=== PATIENT | female | born 1995 | race Caucasian/White ===

== ENCOUNTER 2018-04-01 10:37 | Observation (INO) | payer OTHER ==
--- NOTE | 2018-04-01 11:21 | EDPHY ---
H & P Stated Complaint: R lower abdominal pain starting last night at 2030 Time Seen by Provider: 04/01/18 11:20 - Personal History LMP (Females 10-55): 15-21 Days Ago - Medical/Surgical History Hx Asthma: No Hx Chronic Respiratory Disease: No Hx Diabetes: No Hx Cardiac Disease: No Hx Renal Disease: No Hx Cirrhosis: No Hx Alcoholism: No Hx HIV/AIDS: No Hx Splenectomy or Spleen Trauma: No Other PMH: none reported - Social History Smoking Status: Never smoked Constitutional: Initial Vital Signs Temperature (C) 37.1 C 04/01/18 10:40 Heart Rate 85 04/01/18 10:40 Respiratory Rate 18 04/01/18 10:40 Blood Pressure 118/85 H 04/01/18 10:40 O2 Sat (%) 98 04/01/18 10:40 O2 Delivery Mode Room Air Allergies/Adverse Reactions: No Known Allergies Allergy (Unverified 04/01/18 10:40) Home Medications: Medication Instructions Recorded NK [No Known Home Meds] 04/01/18 Medical Decision Making - Diagnostics Imaging: Discussed imaging studies w/ call circuit worker Radiologist, I viewed and interpreted images myself ED Course/Re-evaluation: CHIEF COMPLAINT: RLQ abd pain HISTORY OF PRESENT ILLNESS: The patient is a 22 y/o female arriving with her friend complaining of acute abdominal pain onset last night around 20:30, about 14 hours ago, and now localized to her RLQ. She has associated nausea and loss of appetite today. No vomiting, diarrhea, flank pain, abnormal vaginal discharge , urinary symptoms, fever. No history of ovarian cysts or prior abdominal surgeries. REVIEW OF SYSTEMS: A comprehensive 10 system review of systems is otherwise negative aside from elements mentioned in the history of present illness and medical decision making. PHYSICAL EXAM: HR, BP, O2 Sat, RR. Temp noted General Appearance: Alert, well hydrated, appropriate, and non-toxic appearing. Head: Atraumatic without scalp tenderness or obvious injury Eyes: Pupils equal, round, reactive to light and accommodation, EOMI, no trauma , no injection. Nose: Atraumatic, no rhinorrhea, clear. Throat: Mucus membranes moist. Neck: Supple, nontender, no lymphadenopathy. Respiratory: No retractions, no distress, no wheezes, and no accessory muscle use. Lungs are clear to auscultation bilaterally. Cardiovascular: Regular rate and rhythm, no murmurs, rubs, or gallops.Good capillary refill all extremities. Gastrointestinal: Abdomen is soft, McBurney's point tenderness, non-distended, no masses, no rebound, no guarding, no peritoneal signs. Musculoskeletal: Normal active ROM of all extremities, atraumatic. Neurological: Alert, appropriate, and interactive. Nonfocal. Skin: No rashes, good turgor, no nodules on palpation. Past medical history: Nexplanon Past surgical history: No abd surgeries Family history: Noncontributory Social history: Friend at bedside. [employer] student. Lives in [place]. DIAGNOSTICS/PROCEDURES/CRITICAL CARE TIME: Abdominal CT: acute appendicitis DIFFERENTIAL DIAGNOSIS: The differential diagnosis for the patient's abdominal pain included but was not limited to ovarian cyst, pelvic inflammatory disease, ovarian torsion, urinary tract infection, ectopic , cholecystitis, and appendicitis. MEDICAL DECISION MAKING: This is a healthy 22 y/o female who presents with a 14-hour history of RLQ abdominal pain with associated nausea. She has McBurney's point tenderness on exam. Concern for appendicitis or ovarian cyst rupture seems less likely due to location of pain. Plan for IV, labs, UA, abdominal CT. Symptomatic management as needed. WBC elevated. CT shows acute appendicitis. Reassessed patient and discussed findings. 1gm IV Cefoxitin ordered. NPO status. Last food last night around 17:00. - Data Points Laboratory Results: Laboratory Results 04/01/18 11:15 04/01/18 11:15 04/01/18 04/01/18 04/01/18 12:10 11:15 11:15 WBC RBC Hgb Hct MCV MCH MCHC RDW Plt Count MPV Neut % (Auto) Lymph % (Auto) [place] % (Auto) Eos % (Auto) Baso % (Auto) Nucleat RBC Rel Count Absolute Neuts (auto) Absolute Lymphs (auto) Absolute Monos (auto) Absolute Eos (auto) Absolute Basos (auto) Absolute Nucleated RBC Immature Gran % Immature Gran # Sodium 137 mEq/L mEq/L (135-145) Potassium 3.8 mEq/L mEq/L (3.3-5.0) Chloride 102 mEq/L mEq/L (97-110) Carbon Dioxide 25 mEq/l mEq/l (22-31) Anion Gap 10 mEq/L mEq/L (8-16) BUN 8 mg/dL mg/dL (7-23) Creatinine 0.6 mg/dL mg/dL (0.6-1.0) Estimated GFR > 60 Glucose 83 mg/dL mg/dL (70-100) Calcium 9.6 mg/dL mg/dL (8.5-10.4) Beta HCG, Qual NEGATIVE Urine Color YELLOW Urine Appearance HAZY Urine pH 7.0 (5.0-7.5) Ur Specific [place] 1.009 (1.002-1.030) Urine Protein NEGATIVE (NEGATIVE) Urine Ketones NEGATIVE (NEGATIVE) Urine Blood 2+ H (NEGATIVE) Urine Nitrate NEGATIVE (NEGATIVE) Urine Bilirubin NEGATIVE (NEGATIVE) Urine Urobilinogen NEGATIVE EU EU (0.2-1.0) Ur Leukocyte Esterase 1+ H (NEGATIVE) Urine RBC 1-3 /hpf /hpf (0-3) Urine WBC 1-3 /hpf /hpf (0-3) Ur Epithelial Cells 2+ /lpf H /lpf (NONE-1+) Urine Bacteria TRACE /hpf H /hpf (NONE SEEN) Urine Mucus TRACE /lpf /lpf (NONE-1+) Urine Glucose NEGATIVE (NEGATIVE) 04/01/18 11:15 WBC 11.14 10^3/uL H 10^3/uL (3.80-9.50) RBC 4.71 10^6/uL 10^6/uL (4.18-5.33) Hgb 13.5 g/dL g/dL (12.6-16.3) Hct 39.6 % % (38.0-47.0) MCV 84.1 fL fL (81.5-99.8) MCH 28.7 pg pg (27.9-34.1) MCHC 34.1 g/dL g/dL (32.4-36.7) RDW 11.6 % % (11.5-15.2) Plt Count 231 10^3/uL 10^3/uL (150-400) MPV 9.8 fL fL (8.7-11.7) Neut % (Auto) 74.3 % H % (39.3-74.2) Lymph % (Auto) 14.3 % L % (15.0-45.0) [place] % (Auto) 10.5 % % (4.5-13.0) Eos % (Auto) 0.3 % L % (0.6-7.6) Baso % (Auto) 0.3 % % (0.3-1.7) Nucleat RBC Rel Count 0.0 % % (0.0-0.2) Absolute Neuts (auto) 8.29 10^3/uL H 10^3/uL (1.70-6.50) Absolute Lymphs (auto) 1.59 10^3/uL 10^3/uL (1.00-3.00) Absolute Monos (auto) 1.17 10^3/uL H 10^3/uL (0.30-0.80) Absolute Eos (auto) 0.03 10^3/uL 10^3/uL (0.03-0.40) Absolute Basos (auto) 0.03 10^3/uL 10^3/uL (0.02-0.10) Absolute Nucleated RBC 0.00 10^3/uL 10^3/uL (0-0.01) Immature Gran % 0.3 % % (0.0-1.1) Immature Gran # 0.03 10^3/uL 10^3/uL (0.00-0.10) Sodium Potassium Chloride Carbon Dioxide Anion Gap BUN Creatinine Estimated GFR Glucose Calcium Beta HCG, Qual Urine Color Urine Appearance Urine pH Ur Specific [place] Urine Protein Urine Ketones Urine Blood Urine Nitrate Urine Bilirubin Urine Urobilinogen Ur Leukocyte Esterase Urine RBC Urine WBC Ur Epithelial Cells Urine Bacteria Urine Mucus Urine Glucose Departure - Departure Disposition: [facility] Acute Clinical Impression: Acute appendicitis Qualifiers: Acute appendicitis type: with localized peritonitis Qualified Code(s): K35.3 - Acute appendicitis with localized peritonitis Condition: Fair Referrals: NONE *PRIMARY CARE P,. [Primary Care Provider] - As per Instructions Report Scribed for: Tramaine Babin Report Scribed by: Shalini Salvador Date of Report: 04/01/18 Time of Report: 11:24
[2018-04-01 11:24] LABS: PLATELET COUNT 231 10^3/uL (150-400)
[2018-04-01] MEDS ORDERED: IOPAMIDOL (ISOVUE-300) 100 ML BTL ONE (12:35)
[2018-04-01] MEDS ORDERED: cefOXitin SODIUM 1 GM in NS 50 ML IV ONE ×2 (13:17→14:09)
[2018-04-01] MEDS ORDERED: NS 500 ML IV ONE (13:31)
[2018-04-01] MEDS ORDERED: NS 1,000 ML IV ONE (13:33)
[2018-04-01] MEDS ORDERED: cefOXitin SODIUM 2 GM in NS 100 ML IV ONE (14:30)
--- NOTE | 2018-04-01 15:08 | GHP ---
DATE OF ADMISSION: 04/01/2018 ADMITTING DIAGNOSIS: Acute appendicitis with appendicolith. 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 At approximately 8:30, she had the gradual onset of abdominal pain over about approximately a half an hour became severe. First it was generalized and then became localized in the periumbilical region. She had nausea, but no vomiting. At 3 a.m., the pain moved to her right lower quadrant. She has had an upper respiratory tract infection the last 2 weeks. She did not have diarrhea. She has not traveled outside the [place] in the last 6 months nor has she had antibiotics in the last 6 months. There is no history of inflammatory bowel disease, prior surgery, or prior similar symptoms. She was seen in the ER. A CAT scan showed an acute appendicitis with appendicolith, mild stranding within the periappendiceal fat. SOCIAL HISTORY: She does not use tobacco or tobacco products. She drinks alcohol on a rare (monthly) basis. ALLERGIES: She has no known drug allergies. MEDICATIONS: She is not taking medications except oral contraceptives. PAST SURGICAL HISTORY: She has had no prior surgeries. PAST SURGICAL HISTORY: There is no history of rheumatic fever, tuberculosis, hepatitis, transfusions. REVIEW OF SYSTEMS: Quite negative. There are no limits on her activities. No history of steroid use in the last 6 months. FAMILY HISTORY: Her mother is 41 years old and alive and well, but does have fibromyalgia. Father is 47 years old. The patient has a younger sister who is 19, and has polycystic ovary syndrome. There are no bleeding disorders, clotting disorders, difficulty with anesthesia in the patient or her family. PHYSICAL EXAMINATION: GENERAL: She is awake and alert and quite pleasant. NEUROLOGIC: There are no focal neurologic findings. HEENT: Skull is normocephalic and atraumatic. NECK: Unremarkable. Thyroid is not enlarged. There are no carotid bruits. There is no cervical, supraclavicular, axillary, or inguinal lymphadenopathy. BACK: Unremarkable. LUNGS: Clear to auscultation. CARDIAC: Shows S1, S2 to be normal with normal split of S2 without murmurs, rubs, or gallops. ABDOMEN: Shows distinctly hypoactive bowel sounds. She is tender to the right of the midline in the suprapubic region at 7 on a scale of 1-10. To palpation, the left upper quadrant is 1, left mid abdomen is 1, left lower quadrant is 2, epigastrium is 1, periumbilical area is 2, suprapubic area is 3, right upper quadrant is 2, right mid abdomen 6, lower quadrant is 6. VITAL SIGNS: Her temperature is 37.1, blood pressure is 111/65, 81, respirations are 16. Room air saturation is 97%. LABORATORIES: Her white count is 11.1 with 74% neutrophils. Hematocrit is 39.6. Platelets are 231. Her beta hCG is negative. Her urine specific gravity is 1.009. IMPRESSION/PLAN: This patient has an appendicolith and early appendicitis. I will plan to perform a laparoscopic appendectomy. /[id number]/MODL MTDD
[2018-04-01] MEDS ORDERED: MIDAZOLAM 2 MG/2 ML VIAL IVP ONE (15:55)
[2018-04-01] MEDS ORDERED: ceFAZolin 1 GM/5 ML SYR ONE (15:55)
[2018-04-01] MEDS ORDERED: HEPARIN 5,000 UNIT/0.5 ML INJ ONE (15:55)
--- NOTE | 2018-04-01 15:55 | PDANEPAE ---
ANE History of Present Illness laparoscopic appendectomy ANE Past Medical History - Cardiovascular History Hx Hypertension: No Hx Arrhythmias: No Hx Chest Pain: No Hx Coronary Artery / Peripheral Vascular Disease: No Hx CHF / Valvular Disease: No Hx Palpitations: No - Pulmonary History Hx COPD: No Hx Asthma/Reactive Airway Disease: No Hx Recent Upper Respiratory Infection: Yes Hx Oxygen in Use at Home: No Hx Sleep Apnea: No - Neurologic History Hx Cerebrovascular Accident: No Hx Seizures: No Hx Dementia: No - Endocrine History Hx Diabetes: No Hypothyroid: No Hyperthyroid: No Obesity: no - Renal History Hx Renal Disorders: No - Liver History Hx Hepatic Disorders: No - Neurological & Psychiatric Hx Hx Neurological and Psychiatric Disorders: No - Cancer History Hx Cancer: No - Congenital Disorder History Hx Congenital Disorders: No - GI History GERD: mild Hx Gastrointestinal Disorders: No - Chronic Pain History Chronic Pain: No - Surgical History Prior Surgeries: none ANE Review of Systems Review of Systems: - Exercise capacity METS (RN): 4 METS ANE Patient History - Allergies Allergies/Adverse Reactions: No Known Allergies Allergy (Verified 04/01/18 14:15) - Home Medications Home Medications: NK [No Known Home Meds] 04/01/18 [Last Taken Unknown] - NPO status NPO Since - Liquids (Date): 04/01/18 NPO Since - Liquids (Time): 10:00 NPO Since - Solids (Date): 03/31/18 NPO Since - Solids (Time): 04:30 - Smoking Hx Smoking Status: Never smoked Marijuana use: Yes - Alcohol Use Alcohol Use: None - Family Anes Hx Family Anes Hx: none ANE Labs/Vital Signs - Labs Result Diagrams: 04/01/18 11:15 04/01/18 11:15 - Vital Signs Blood Pressure: 118/75 Heart Rate: 78 Respiratory Rate: 18 O2 Sat (%): 98 Height: 172.72 cm Weight: 75.75 kg ANE Physical Exam - Airway Neck exam: FROM Mallampati Score: Class 1 Mouth exam: normal dental/mouth exam - Pulmonary Pulmonary: clear to auscultation - Cardiovascular Cardiovascular: regular rate and rhythym - ASA Status ASA Status: I, E ANE Anesthesia Plan Anesthesia Plan: general endotracheal anesthesia
[2018-04-01] MEDS ORDERED: DEXAMETHASONE 4 MG/ML VIAL ONE (16:01)
[2018-04-01] MEDS ORDERED: fentaNYL 250 MCG/5 ML INJ ONE (16:01)
[2018-04-01] MEDS ORDERED: PROPOFOL 200 MG/20 ML VIAL ONE (16:01)
[2018-04-01] MEDS ORDERED: ROCURONIUM 50 MG/5 ML VIAL ONE (16:01)
[2018-04-01] MEDS ORDERED: MIDAZOLAM 2 MG/2 ML VIAL ONE (16:03)
[2018-04-01] MEDS ORDERED: PHENYLEPHRINE HCL 100 MCG/ML SYR ONE (16:25)
[2018-04-01] MEDS ORDERED: ONDANSETRON 4 MG/2 ML VIAL ONE (16:56)
[2018-04-01] MEDS ORDERED: NEOSTIGMINE METHYLSULFATE 5 MG/5 ML SYR ONE (17:01)
[2018-04-01] MEDS ORDERED: GLYCOPYRROLATE 0.2 MG/1 ML VIAL ONE (17:01)
[2018-04-01] MEDS ORDERED: HYDROmorphONE/DILAUDID 1 MG/ML INJ IVP PRN ×2 (17:12→17:19)
[2018-04-01] MEDS ORDERED: NALOXONE HCL 0.4 MG/ML INJ IVP PRN (17:12)
[2018-04-01] MEDS ORDERED: ONDANSETRON 4 MG/2 ML VIAL IVP PRN (17:12)
[2018-04-01] MEDS ORDERED: fentaNYL 100 MCG/2 ML INJ ONE (17:29)
[2018-04-01] MEDS ORDERED: LR 1,000 ML IV SCH (17:30)
--- NOTE | 2018-04-01 17:30 | POSTANESTH ---
Post Anesthetic Evaluation Cardiovascular Status: Normal, Stable Respiratory Status: Normal, Stable Level of Consciousness/Mental Status: Can Participate in Eval Pain Control: Adequate, Prn Tx Ordered Nausea/Vomiting Control: Adequate, Prn Tx Ordered Complications Possibly Related to Anesthesia: None Noted
[2018-04-01] MEDS: fentaNYL 100 MCG/2 ML INJ IVP PRN ×2 (17:32→17:53)
--- NOTE | 2018-04-01 17:34 | POSTOPPROG ---
Post Op Note Date of Operation: 04/01/18 Surgeon: Radu Jimenes Anesthesia: GET(General Endotracheal) Pre-op Diagnosis: acute appendicitis with appendicolith Post-op Diagnosis: acute unruptured appendicitis with appendicolith Indication: acute appendicitis with appendicolith Procedure: laparoscopic appendectomy Findings: acute unruptured appendicitis with appendicolith Inf/Abcess present in the surg proc area at time of surgery?: No EBL: Minimal Total fluids administered: 1100 Complications: none Specimen(s): appendix
[2018-04-01] MEDS ORDERED: KETOROLAC 30 MG/1 ML SDV ONE (17:51)
[2018-04-01] MEDS: KETOROLAC 30 MG/1 ML SDV IVP SCH ×2 (17:53→23:59)
--- NOTE | 2018-04-01 17:59 | GOP ---
DATE OF OPERATION: 04/01/2018 SURGEON: Radu Jimenes MD ANESTHESIA: General endotracheal. PREOPERATIVE DIAGNOSIS: Acute appendicitis with appendicolith. POSTOPERATIVE DIAGNOSIS: Acute unruptured appendicitis with appendicolith. PROCEDURE PERFORMED: Laparoscopic appendectomy. FINDINGS: Acute unruptured appendicitis with appendicolith. SPECIMENS: Appendix. ESTIMATED BLOOD LOSS: Minimal. INDICATIONS: Acute appendicitis with appendicolith. DESCRIPTION OF PROCEDURE: The patient is placed on the operating table in a supine position. After induction of adequate general endotracheal anesthesia, the abdomen was clipped, prepped, and draped. A surgical time-out was carried out and agreed to by all members of the operative team. A curvilinear incision was planned in the inferior umbilical fold. The skin was sharply incised. Ca utery and spreading was used to dissect down to the anterior rectus sheath bilaterally, which was ave vated between Allis clamps. The midline fascia was carefully entered with Bovie electrocautery. A p ursestring and a row of PDS was placed. The peritoneum was entered. An 11 and 12 mm disposable Dez on trocars were used. Intra-abdominal insufflation was carried out to 15 mmHg. A 5 mm left lower quadrant port was placed, as was a 5 mm suprapubic port. The appendix was identifi ed in the right pelvis. It was not ruptured. It was carefully elevated and the mesoappendix divided . The appendix was cleared at the level of its base. A 35 mm Endo-MONIKA stapler was used to transect the appendix. In the process of clearing the appendix, there was a small heat injury to the serosa o n the cecum. This was carefully elevated with a Endo Allis and a small Endoloop was placed to secure it to make sure there was no leakage. Hemostasis was excellent. Photographic documentation of both ovaries was carried out. There was no evidence of polycystic ovary syndrome. The small bowel was r un for a length of approximately 3-1/2 feet. There was no evidence of Meckel diverticulum or mesente christen adenitis. The pelvis was well irrigated with heparin and Ancef containing irrigant. The ports were removed under direct vision. The infraumbilical midline fascia was secured with inver tiffany simple suture of #0 PDS at its midpoint. The pursestring was now tied. The subcutaneous tissue was well irrigated. Hemostasis was found to be excellent. All skin incisions were closed with inver tiffany simple sutures of #4-0 Vicryl. Mastisol and Steri-Strips were placed. The patient was transferr ed to recovery in stable and satisfactory condition. FLUIDS REPLACED: 1100 cc. COMPLICATIONS: None. /[id number]/MODL
[2018-04-01] MEDS ORDERED: KETOROLAC 15 MG/1 ML SDV IVP SCH (18:00)
[2018-04-01] MEDS: ACETAMINOPHEN 500 MG TAB PO SCH (19:13)
--- NOTE | 2018-04-01 19:39 | GDS ---
HISTORY AND HOSPITAL COURSE: The patient is a 22-year-old white female, who underwent a laparoscopic appendectomy for acute but unruptured appendicitis. Her condition at discharge is improved. DISPOSITION: Home. DIET: Unrestricted (see below). Her dietary texture is unmodified. MEDICATIONS AT DISCHARGE: She will continue her oral contraceptives. She is to take Tylenol 1000 mg every 8 hours. She will take Toradol 10 mg p.o. q.6 h. for the next 5 days, and she will then subst itute Motrin if needed. She has Dilaudid 2 mg; she is to take 1 to 2 tablets every 4 hours as needed for severe pain. DISCHARGE INSTRUCTIONS: For the next 3 weeks, she is to lift less than 10 pounds. She is to shower only, and she is to keep her Steri-Strips in place. She is to take a multivitamin with zinc, copper, and C daily. She is to avoid constipating foods suc h as bananas, rice, applesauce, and cheese. She is to look for signs of infection. Superficial infection will be manifested by redness, warmth, swelling and tenderness. Deep infection will be manifested by abdominal pain, decreasing appetite, general malaise, fevers, an d chills. She will follow up with Dr. Aristides Amezquita' office in approximately 2 weeks. Hospital course was unremarkable. She has done well postoperatively. She will be seen in discharge tomorrow when she tolerates a regular diet. /[id number]/MODL
[2018-04-02] MEDS: ACETAMINOPHEN 500 MG TAB PO SCH ×2 (01:01→08:12)
[2018-04-02] MEDS: KETOROLAC 30 MG/1 ML SDV IVP SCH (05:37)
--- NOTE | 2018-04-02 08:21 | SOAPPROG ---
SOAP Progress Note Assessment/Plan: Assessment/Plan: 22 Y F s/p lap appy, POD#1. Doing well. Tolerating diet. Pain controlled, a "2" Wounds intact. No N/V. Afebrile. D/c to home. S: see above O: alert, nad no wob abd soft, inc cdi 04/02/18 08:20 Objective: Vital Signs Temp Pulse Resp BP Pulse Ox 36.7 C 73 14 100/55 L 97 04/02/18 04:30 04/02/18 04:30 04/02/18 04:30 04/02/18 04:30 04/02/18 04:30 04/01/18 04/02/18 04/03/18 05:59 05:59 05:59 Intake Total 3121 Output Total 425 Balance 2696 ICD10 Worksheet Patient Problems: Problems Problem Status Onset Acute appendicitis Acute
[2018-04-02 08:27] VITALS: BP 111/64
--- NOTE | 2018-04-02 09:07 | ASMTLACE ---
CHANI Length of stay for Answers: 1 day current admission Acuity / Level of Answers: No Care: Did the patient have an inpatient admission? # of Emergency department Answers: 1-2 visits in the last 6 months Score: 2 Date Signed: 04/02/2018 09:06 AM Electronically Signed By:Connie Lo
== END 2018-04-02 10:23 | disposition home or self-care (01) ==
LOC: F1N 17:52
PROVIDERS: ADMIT Surgery; ATTEND Surgery
PROC: 0DTJ4ZZ Resection of Appendix, Percutaneous Endoscopic Approach (ICD-10-PCS; principal; 2018-04-01 16:00)
DX: K35.80 Unspecified acute appendicitis (principal); K38.1 Appendicular concretions
CPT/HCPCS: 44970; 74177; 96365; 96375; 96376; 99285; G0378; J0694; J1100; J1644; J1885; J2250; J2370; J2405; J2704; J2710; J3010; Q9967